=== PATIENT | female | born 1960 | race Caucasian/White ===

== ENCOUNTER 2019-04-10 12:34 | Inpatient (IN) | payer MEDICAID ==
[~2019-04-10] VITALS: Ht 160 cm; Wt 64.5 kg
[2019-04-10 13:07] LABS: BASOPHILS # (AUTO) 0.1 X10'3 (0-0.2); BASOPHILS % (AUTO) 0.5 % (0-1); EOSINOPHILS % (AUTO) 0.2 % (0-6); HEMATOCRIT 29.2 % (35.0-45.0); HEMOGLOBIN 10.3 g/dl (12.0-16.0); LYMPHOCYTES # (AUTO) 1.1 X10'3 (1.1-4.8); LYMPHOCYTES % (AUTO) 9.7 % (21-51); MEAN CORPUSCULAR HEMOGLOBIN 30.4 PG (27.0-31.0); MEAN CORPUSCULAR HGB CONC 35.1 g/dL (33.0-36.5); MEAN CORPUSCULAR VOLUME 86.6 FL (78-98); MEAN PLATELET VOLUME 8.2 FL (7.4-10.4); MONOCYTES # (AUTO) 0.8 X10'3 (0-0.9); MONOCYTES % (AUTO) 6.6 % (2-12); NEUTROPHILS # (AUTO) 9.4 X10'3 (1.8-7.7); PLATELET COUNT 179 X10'3 (140-440); RED BLOOD COUNT 3.37 X10'6 (4.20-5.60); RED CELL DISTRIBUTION WIDTH 14.9 % (11.5-14.5); WHITE BLOOD COUNT 11.4 X10'3 (4.5-11.0)
[2019-04-10] MEDS ORDERED: HYDROmorphone 1 mg/ml syringe IV ONE ×2 (13:10→15:05)
[2019-04-10 13:19] LABS: PARTIAL THROMBOPLASTIN TIME 32 SECONDS (22-32)
[2019-04-10] MEDS ORDERED: nicotine 14mg patch - 24hr TD ONE (13:20)
[2019-04-10 13:27] LABS: CLARITY,URINE SLIGHTLY CLOUDY (Clear); COLOR,URINE STRAW (Yellow); GLUCOSE, URINE NEGATIVE (Neg); KETONES,URINE TRACE mg/dl (Neg); LEUKOCYTE ESTERASE ,URINE SMALL (Neg); NITRITES, URINE POSITIVE (Neg); OCCULT BLOOD,URINE MODERATE (Neg); PROTEIN,URINE NEGATIVE (Neg); UROBILINOGEN,URINE 0.2 E.U/dL (0.2-1.0)
[2019-04-10 13:29] LABS: ALANINE AMINOTRANSFERASE 45 U/L (12-78); ALBUMIN 2.7 G/DL (3.4-5.0); ALBUMIN/GLOBULIN RATIO 0.9 (1.1-1.5); ALKALINE PHOSPHATASE 136 IU/L (46-116); ANION GAP 8 (8-16); ASPARTATE AMINO TRANSFERASE 49 U/L (10-37); BILIRUBIN,TOTAL 0.7 MG/DL (0.1-1.0); BLOOD UREA NITROGEN 4 MG/DL (7-18); CALCIUM 6.9 MG/DL (8.5-10.1); CHLORIDE 103 MMOL/L (99-107); CREATININE 0.57 MG/DL (0.40-0.90); GLUCOSE 96 MG/DL (70-104); POTASSIUM 4.2 MMOL/L (3.5-5.1); SODIUM 132 MMOL/L (135-145); TOTAL CARBON DIOXIDE 20.9 MMOL/L (24-32); TOTAL PROTEIN 5.7 G/DL (6.4-8.2); eGFR > 90 ML/MIN
[2019-04-10 13:29] LABS: UA COLLECTION TYPE FOLEY CATH
[2019-04-10 13:36] LABS: BACTERIA,URINE 4+ /HPF (Neg); RBC,URINE 0-2 /HPF (0-2)
[2019-04-10 13:37] LABS: MUCUS STRANDS NONE SEEN /LPF (Neg); SQUAMOUS EPITHELIAL CELL,UR FEW /LPF (FEW); WBC CLUMPS,URINE FEW /HPF (NEGATIVE)
[2019-04-10] MEDS ORDERED: LEVO75TA7 PO (13:42)
[2019-04-10] MEDS ORDERED: WOOL454C TOP (13:42)
[2019-04-10] MEDS ORDERED: LOSA50TA64 PO (13:42)
[2019-04-10] MEDS ORDERED: CETI10TA18 PO (13:42)
[2019-04-10] MEDS ORDERED: LEVO88TA2 PO (13:42)
[2019-04-10] MEDS ORDERED: HYDROcodone/acetaminophen 5mg/325mg tablet PO PRN (13:50)
[2019-04-10] MEDS ORDERED: morphine 2 MG/ML inj. syringe IV PRN ×2 (13:50)
[2019-04-10] MEDS ORDERED: magnesium hydroxide 30ml (MOM) UD suspension PO PRN (13:50)
[2019-04-10] MEDS ORDERED: HYDROcodone/acetaminophen 10/325mg tab PO PRN (13:50)
[2019-04-10] MEDS ORDERED: mag hydrox/Alum hydrox/simeth 30ml oral suspension PO PRN (13:50)
[2019-04-10] MEDS ORDERED: acetaminophen 325mg tablet PO PRN ×2 (13:50)
[2019-04-10] MEDS: dextrose 5%-1/2 normal saline 1,000 ML IV SCH (15:17)
[2019-04-10 16:53] VITALS: BP 129/76
--- NOTE | 2019-04-10 17:14 | NUR ---
Patient in room ORTHO 4009. I have received report from Mariya SCHNEIDER and had the opportunity to ask questions and assume patient care.
[2019-04-10 18:00] VITALS: BP 105/57
--- NOTE | 2019-04-10 18:22 | NUR ---
I have reviewed and agree with all interventions, assessments performed and documented by Drake SCHNEIDER.
--- NOTE | 2019-04-10 18:28 | NUR ---
Problems reprioritized. Patient report given, questions answered & plan of care reviewed with Meek SCHNEIDER.
--- NOTE | 2019-04-10 19:00 | NUR ---
Patient in room ORTHO 4009. I have received report from Drake SCHNEIDER and had the opportunity to ask questions and assume patient care.
[2019-04-10] MEDS: losartan 50mg tablet PO SCH (19:56)
[2019-04-10] MEDS: HYDROmorphone 1 mg/ml syringe IV PRN ×2 (20:00→23:44)
[2019-04-10 22:00] VITALS: BP 103/58
[2019-04-11] VITALS (21 sets, daily range): BP systolic 76–141; BP diastolic 51–87
[2019-04-11] MEDS: dextrose 5%-1/2 normal saline 1,000 ML IV SCH ×2 (00:35→13:42)
[2019-04-11] MEDS ORDERED: diazepam inj 5 MG/ML inj. IV ONE (01:20)
[2019-04-11] MEDS: HYDROmorphone 1 mg/ml syringe IV PRN ×3 (05:34→19:18)
[2019-04-11] MEDS ORDERED: ALBU18HF2 INH (05:46)
--- NOTE | 2019-04-11 06:10 | NUR ---
Patient in room ORTHO 4009. I have received report from RUSSELL SCHNEIDER and had the opportunity to ask questions and assume patient care.
[2019-04-11 06:24] LABS: ALBUMIN 2.3 G/DL (3.4-5.0); ANION GAP 10 (8-16); BLOOD UREA NITROGEN 2 MG/DL (7-18); BUN/CREATININE RATIO 3.9 (6.6-38.0); CALCIUM 7.2 MG/DL (8.5-10.1); CHLORIDE 101 MMOL/L (99-107); CREATININE 0.51 MG/DL (0.40-0.90); GLUCOSE 141 MG/DL (70-104); POTASSIUM 4.1 MMOL/L (3.5-5.1); SODIUM 130 MMOL/L (135-145); TOTAL CARBON DIOXIDE 18.9 MMOL/L (24-32); eGFR > 90 ML/MIN
[2019-04-11 06:50] LABS: BASOPHILS # (AUTO) 0.1 X10'3 (0-0.2); BASOPHILS % (AUTO) 0.6 % (0-1); EOSINOPHILS # (AUTO) 0.1 X10'3 (0-0.9); EOSINOPHILS % (AUTO) 0.9 % (0-6); HEMATOCRIT 24.7 % (35.0-45.0); HEMOGLOBIN 8.6 g/dl (12.0-16.0); LYMPHOCYTES # (AUTO) 1.3 X10'3 (1.1-4.8); LYMPHOCYTES % (AUTO) 12.4 % (21-51); MEAN CORPUSCULAR HGB CONC 34.7 g/dL (33.0-36.5); MEAN CORPUSCULAR VOLUME 86.4 FL (78-98); MEAN PLATELET VOLUME 8.8 FL (7.4-10.4); MONOCYTES # (AUTO) 0.8 X10'3 (0-0.9); MONOCYTES % (AUTO) 7.1 % (2-12); NEUTROPHILS # (AUTO) 8.6 X10'3 (1.8-7.7); PLATELET COUNT 132 X10'3 (140-440); RED BLOOD COUNT 2.87 X10'6 (4.20-5.60); RED CELL DISTRIBUTION WIDTH 14.8 % (11.5-14.5); WHITE BLOOD COUNT 10.9 X10'3 (4.5-11.0)
[2019-04-11] MEDS: levoTHYROXINE 75mcg tablet PO SCH ×2 (07:00→13:42)
[2019-04-11] MEDS: losartan 50mg tablet PO SCH ×2 (07:28→19:16)
--- NOTE | 2019-04-11 09:00 | NUR ---
DOWN TO THE OR.
[2019-04-11] MEDS ORDERED: MIDAZolam 5mg/5ml vial ONE (09:47)
[2019-04-11] MEDS ORDERED: fentaNYL/PF 50MCG/1 ML 2ML syringe ONE (09:48)
[2019-04-11] MEDS ORDERED: tetracaine 1% (10mg/ml) pres. free inj. ONE (09:51)
[2019-04-11] MEDS ORDERED: tranexamic acid 100mg/ml inj. ONE (10:05)
[2019-04-11] MEDS ORDERED: ringers solution, lacted 1,000 ML IV SCH (10:29)
[2019-04-11] MEDS ORDERED: meperidine/PF 25mg/ml syringe IV PRN ×3 (10:30)
[2019-04-11] MEDS ORDERED: morphine 4 MG/ML inj SYRINge IV PRN ×2 (10:30)
[2019-04-11] MEDS ORDERED: proCHLORperazine 10 MG/2 ml inj IV PRN (10:30)
[2019-04-11] MEDS ORDERED: ondansetron/PF 4mg/2ml inj IV PRN (10:30)
[2019-04-11] MEDS ORDERED: ePHEDrine 50MG/ML INJ. ONE (11:00)
[2019-04-11] MEDS ORDERED: propofol inj 20 ML IV ONE (11:00)
[2019-04-11] MEDS ORDERED: albuterol 2.5 MG/3 ML nebule NEB ONE (11:40)
--- NOTE | 2019-04-11 11:40 | NUR ---
Received from OR via BED, accompanied by Anesthesiologist PERRY and report given by Anesthesiolgist. PT AWAKE AND ALERT, OXYGENATING WELL ON 3 LPM O2 VIA NC, PT HAS ALOT OF CLEAR PHLEGM, C/O NOT BEING ABLE TO BRING UP SECRETIONS. RESP TX GIVEN PER ANESTHESIA ORDERS. PT DENIES NAUSEA, NO PAIN. HAD SAB, NO MOVEMENT OR SENSATION FROM UMBILICUS DOWN. PEDAL PULSES PALP BILAT. R HIP DSG CDI, DEANNA BANDAGE OVER KNEE AND DISTAL FEMUR. CDI. FC PATENT, SCDS ON. VSS.
--- NOTE | 2019-04-11 12:50 | NUR ---
Report called to receiving nurse. Transferred via BED Belongings IN PT ROOM. NO PAIN, SPINAL STILL EFFECTIVE. RLE IMMOBILIZER IN PLACE. DENIES NAUSEA, NO REQUEST FOR FLUIDS. VSS. POST OP XRAY DONE. PT CLEARING SECRETION WITHOUT DIFFICULTY, SA02 100% ON 2LPM VIA NC. TRANSFERRED BACK TO ORTHO FLOOR IN STABLE CONDITION. Special Issues communicated to receiving nurse.
--- NOTE | 2019-04-11 13:00 | NUR ---
ASSUMED CARE, RECEIVED REPORT FROM MACO SCHNEIDER. POST OP VS STARTED. PT REPORTS 0/10 PAIN. WILL CONTINUE TO MONITOR.
[2019-04-11] MEDS: CefTRIAXone/D5W-Rocephin 1gm 50 ML IV SCH (13:42)
--- NOTE | 2019-04-11 14:46 | NUR ---
PAGER ID: [phone] MESSAGE: JANN [id number] RE: MARCELO [id number] PATIENT ASKING FOR NICOTINE PATCH.
[2019-04-11] MEDS: ondansetron/PF 4mg/2ml inj IV PRN (15:22)
[2019-04-11] MEDS: cefazolin/dext.iso 2gm/100ml 100 ML IV SCH (15:56)
--- NOTE | 2019-04-11 17:35 | NUR ---
PAGER ID: [phone] MESSAGE: JANN [id number] RE: MARCELO [id number] PATIENT IS REQUESTING A MUSCLE RELAXER.
[2019-04-11] MEDS ORDERED: traMADol 50MG tablet PO PRN (17:50)
[2019-04-11] MEDS: traMADol 50MG tablet PO PRN ×2 (17:59→21:33)
--- NOTE | 2019-04-11 18:05 | NUR ---
Problems reprioritized. Patient report given, questions answered & plan of care reviewed with RUSSELL SCHNEIDER.
--- NOTE | 2019-04-11 19:00 | NUR ---
Patient in room ORTH[facility] 4009. I have received report from Corey SCHNEIDER and had the opportunity to ask questions and assume patient care.
[2019-04-11] MEDS ORDERED: hydrOXYzine 25 MG tablet PO PRN (20:00)
[2019-04-11] MEDS ORDERED: albuterol 2.5 MG/3 ML nebule NEB PRN (21:05)
[2019-04-11] MEDS: ALBUTEROL IH (22:12)
[2019-04-12] MEDS: HYDROmorphone 1 mg/ml syringe IV PRN ×5 (00:04→16:13)
[2019-04-12] MEDS: cefazolin/dext.iso 2gm/100ml 100 ML IV SCH ×3 (00:04→16:18)
[2019-04-12] MEDS: dextrose 5%-1/2 normal saline 1,000 ML IV SCH ×3 (00:16→21:36)
[2019-04-12 02:00] VITALS: BP 94/48
[2019-04-12 06:00] VITALS: BP 99/50
[2019-04-12] MEDS: traMADol 50MG tablet PO PRN ×5 (06:13→22:46)
--- NOTE | 2019-04-12 06:30 | NUR ---
Patient in room ORTH[facility] 4009. I have received report from WYATT Eden and had the opportunity to ask questions and assume patient care.
[2019-04-12] MEDS: levoTHYROXINE 75mcg tablet PO SCH (07:00)
[2019-04-12 07:10] LABS: BASOPHILS # (AUTO) 0.1 X10'3 (0-0.2); BASOPHILS % (AUTO) 0.5 % (0-1); EOSINOPHILS # (AUTO) 0.1 X10'3 (0-0.9); EOSINOPHILS % (AUTO) 1.1 % (0-6); HEMOGLOBIN 7.2 g/dl (12.0-16.0); LYMPHOCYTES # (AUTO) 1.5 X10'3 (1.1-4.8); LYMPHOCYTES % (AUTO) 14.9 % (21-51); MEAN CORPUSCULAR HEMOGLOBIN 30.2 PG (27.0-31.0); MEAN CORPUSCULAR HGB CONC 35.5 g/dL (33.0-36.5); MEAN CORPUSCULAR VOLUME 85.1 FL (78-98); MEAN PLATELET VOLUME 8.9 FL (7.4-10.4); MONOCYTES # (AUTO) 1.2 X10'3 (0-0.9); NEUTROPHILS # (AUTO) 7.3 X10'3 (1.8-7.7); NEUTROPHILS % (AUTO) 71.5 % (42-75); PLATELET COUNT 123 X10'3 (140-440); RED BLOOD COUNT 2.39 X10'6 (4.20-5.60); RED CELL DISTRIBUTION WIDTH 14.6 % (11.5-14.5); WHITE BLOOD COUNT 10.2 X10'3 (4.5-11.0)
[2019-04-12 07:16] LABS: ANION GAP 6 (8-16); CALCIUM 7.3 MG/DL (8.5-10.1); CHLORIDE 96 MMOL/L (99-107); GLUCOSE 125 MG/DL (70-104); POTASSIUM 3.4 MMOL/L (3.5-5.1); SODIUM 126 MMOL/L (135-145); TOTAL CARBON DIOXIDE 24.4 MMOL/L (24-32)
[2019-04-12 07:24] LABS: HEMATOCRIT 20.3 % (35.0-45.0)
[2019-04-12 07:25] LABS: BLOOD UREA NITROGEN 1 MG/DL (7-18); BUN/CREATININE RATIO 1.9 (6.6-38.0); CREATININE 0.54 MG/DL (0.40-0.90); eGFR > 90 ML/MIN
--- NOTE | 2019-04-12 07:26 | NUR ---
CALLED DR MILAN WITH CRITICAL HCT OF 20.3 AND HGB OF 7.2 NO NEW ORDERS GIVEN. WILL CONTINUE TO MONITOR.
[2019-04-12] MEDS: enoxaparin 40mg/0.4ml syringe SUBCUT SCH (07:50)
[2019-04-12] MEDS: CefTRIAXone/D5W-Rocephin 1gm 50 ML IV SCH (07:54)
[2019-04-12] MEDS: losartan 50mg tablet PO SCH ×2 (07:56→20:33)
[2019-04-12] MEDS: ALBUTEROL IH ×3 (08:15→20:52)
[2019-04-12 10:00] VITALS: BP 83/51
[2019-04-12] MEDS: ondansetron/PF 4mg/2ml inj IV PRN (11:05)
[2019-04-12 14:00] VITALS: BP 101/46
[2019-04-12] MEDS ORDERED: potassium Cl 20 mEq SR tablet PO PRN (14:15)
[2019-04-12] MEDS ORDERED: potassium CL 10mEq/100ml bag 100 ML IV PRN (14:15)
[2019-04-12] MEDS: levoTHYROXINE 88mcg tablet PO SCH (14:24)
[2019-04-12] MEDS: potassium Cl 20 mEq SR tablet PO PRN ×3 (14:25→22:46)
[2019-04-12 18:00] VITALS: BP 102/49
--- NOTE | 2019-04-12 18:10 | NUR ---
Received report from Gabriela SCHNEIDER, assumed care of patient.
--- NOTE | 2019-04-12 18:30 | NUR ---
Problems reprioritized. Patient report given, questions answered & plan of care reviewed with WYATT Hamm.
[2019-04-12] MEDS: lactobacillus rhamnosus 10,000 MMU CELLS/CAPSULE PO SCH (20:33)
[2019-04-12] MEDS: HYDROmorphone inj. 0.5 MG/0.5 ML DISP.SYRIN IV PRN (20:33)
[2019-04-12 21:59] VITALS: BP 106/56
[2019-04-13] VITALS (13 sets, daily range): BP systolic 93–127; BP diastolic 49–68
[2019-04-13] MEDS: HYDROmorphone inj. 0.5 MG/0.5 ML DISP.SYRIN IV PRN ×2 (01:05→06:35)
[2019-04-13] MEDS: traMADol 50MG tablet PO PRN ×3 (03:41→19:05)
--- NOTE | 2019-04-13 06:13 | NUR ---
Report given to Gabriela SCHNEIDER.
[2019-04-13 06:15] LABS: BASOPHILS # (AUTO) 0.1 X10'3 (0-0.2); BASOPHILS % (AUTO) 0.5 % (0-1); EOSINOPHILS # (AUTO) 0.2 X10'3 (0-0.9); EOSINOPHILS % (AUTO) 1.9 % (0-6); LYMPHOCYTES # (AUTO) 2.1 X10'3 (1.1-4.8); LYMPHOCYTES % (AUTO) 17.3 % (21-51); MEAN CORPUSCULAR HEMOGLOBIN 29.8 PG (27.0-31.0); MEAN CORPUSCULAR HGB CONC 34.5 g/dL (33.0-36.5); MEAN CORPUSCULAR VOLUME 86.3 FL (78-98); MEAN PLATELET VOLUME 8.8 FL (7.4-10.4); MONOCYTES # (AUTO) 1.8 X10'3 (0-0.9); MONOCYTES % (AUTO) 14.9 % (2-12); NEUTROPHILS % (AUTO) 65.4 % (42-75); PLATELET COUNT 138 X10'3 (140-440); RED CELL DISTRIBUTION WIDTH 14.8 % (11.5-14.5); WHITE BLOOD COUNT 12.3 X10'3 (4.5-11.0)
[2019-04-13 06:30] LABS: ALBUMIN 1.9 G/DL (3.4-5.0); ANION GAP 5 (8-16); BLOOD UREA NITROGEN 1 MG/DL (7-18); BUN/CREATININE RATIO 1.7 (6.6-38.0); CALCIUM 7.4 MG/DL (8.5-10.1); CHLORIDE 96 MMOL/L (99-107); CREATININE 0.58 MG/DL (0.40-0.90); GLUCOSE 101 MG/DL (70-104); MAGNESIUM 1.5 MG/DL (1.5-2.4); POTASSIUM 5.1 MMOL/L (3.5-5.1); SODIUM 126 MMOL/L (135-145); TOTAL CARBON DIOXIDE 25.5 MMOL/L (24-32); eGFR > 90 ML/MIN
[2019-04-13 06:32] LABS: HEMATOCRIT 19.9 % (35.0-45.0); HEMOGLOBIN 6.8 g/dl (12.0-16.0)
[2019-04-13] MEDS ORDERED: diphenhydrAMINE 25mg capsule PO ONE (06:45)
[2019-04-13] MEDS: levoTHYROXINE 75mcg tablet PO SCH (07:00)
[2019-04-13] MEDS: losartan 50mg tablet PO SCH ×2 (08:00→19:05)
[2019-04-13] MEDS: lactobacillus rhamnosus 10,000 MMU CELLS/CAPSULE PO SCH ×2 (08:12→19:05)
[2019-04-13] MEDS: dextrose 5%-1/2 normal saline 1,000 ML IV SCH (08:12)
[2019-04-13] MEDS: CefTRIAXone/D5W-Rocephin 1gm 50 ML IV SCH (08:12)
[2019-04-13] MEDS: enoxaparin 40mg/0.4ml syringe SUBCUT SCH (08:13)
--- NOTE | 2019-04-13 18:10 | NUR ---
Received report from Gabriela SCHNEIDER, assumed care of patient with Noris SCHNEIDER.
--- NOTE | 2019-04-13 19:00 | NUR ---
Offered patient milk of magnesia since she hasn't had a bowel movement since 04/10, patient requested milk of mag to be administered in the AM
[2019-04-14] MEDS: traMADol 50MG tablet PO PRN ×4 (02:21→23:12)
--- NOTE | 2019-04-14 05:47 | NUR ---
In agreement with and have reviewed all charting and med pass completed by Elsa SCHNEIDER for the shift time frame.
[2019-04-14 06:00] VITALS: BP 134/80
--- NOTE | 2019-04-14 06:05 | NUR ---
Gave report to Gabriela SCHNEIDER.
[2019-04-14 06:22] LABS: BASOPHILS # (AUTO) 0.1 X10'3 (0-0.2); BASOPHILS % (AUTO) 0.7 % (0-1); EOSINOPHILS # (AUTO) 0.1 X10'3 (0-0.9); HEMATOCRIT 27.2 % (35.0-45.0); HEMOGLOBIN 9.7 g/dl (12.0-16.0); LYMPHOCYTES # (AUTO) 1.5 X10'3 (1.1-4.8); LYMPHOCYTES % (AUTO) 13.7 % (21-51); MEAN CORPUSCULAR HEMOGLOBIN 30.6 PG (27.0-31.0); MEAN CORPUSCULAR HGB CONC 35.8 g/dL (33.0-36.5); MEAN CORPUSCULAR VOLUME 85.4 FL (78-98); MEAN PLATELET VOLUME 8.7 FL (7.4-10.4); MONOCYTES # (AUTO) 1.7 X10'3 (0-0.9); MONOCYTES % (AUTO) 15.4 % (2-12); NEUTROPHILS # (AUTO) 7.6 X10'3 (1.8-7.7); NEUTROPHILS % (AUTO) 69.2 % (42-75); PLATELET COUNT 165 X10'3 (140-440); RED BLOOD COUNT 3.19 X10'6 (4.20-5.60); RED CELL DISTRIBUTION WIDTH 14.9 % (11.5-14.5)
[2019-04-14 06:32] LABS: ANION GAP 5 (8-16); BLOOD UREA NITROGEN 1 MG/DL (7-18); BUN/CREATININE RATIO 1.6 (6.6-38.0); CALCIUM 7.9 MG/DL (8.5-10.1); CHLORIDE 94 MMOL/L (99-107); CREATININE 0.62 MG/DL (0.40-0.90); GLUCOSE 90 MG/DL (70-104); MAGNESIUM 1.7 MG/DL (1.5-2.4); POTASSIUM 4.2 MMOL/L (3.5-5.1); SODIUM 128 MMOL/L (135-145); TOTAL CARBON DIOXIDE 29.1 MMOL/L (24-32); eGFR > 90 ML/MIN
[2019-04-14] MEDS: levoTHYROXINE 88mcg tablet PO SCH (07:08)
[2019-04-14] MEDS: losartan 50mg tablet PO SCH ×2 (08:00→20:03)
[2019-04-14] MEDS: CefTRIAXone/D5W-Rocephin 1gm 50 ML IV SCH (08:00)
[2019-04-14] MEDS: lactobacillus rhamnosus 10,000 MMU CELLS/CAPSULE PO SCH ×2 (08:00→20:03)
[2019-04-14] MEDS: enoxaparin 40mg/0.4ml syringe SUBCUT SCH (08:00)
[2019-04-14 10:00] VITALS: BP 113/68
[2019-04-14 17:51] LABS: TOTAL CELLS COUNTED 100
[2019-04-14 17:53] LABS: PLATELET ESTIMATE NORMAL
[2019-04-14] MEDS ORDERED: sennosides/docusate sodium tablet PO SCH (21:00)
[2019-04-14 22:00] VITALS: BP 118/61
[2019-04-15] MEDS: traMADol 50MG tablet PO PRN ×4 (05:03→16:46)
[2019-04-15 06:36] LABS: ALBUMIN 1.9 G/DL (3.4-5.0); ANION GAP 7 (8-16); BLOOD UREA NITROGEN 3 MG/DL (7-18); BUN/CREATININE RATIO 5.3 (6.6-38.0); CALCIUM 7.9 MG/DL (8.5-10.1); CHLORIDE 92 MMOL/L (99-107); CREATININE 0.57 MG/DL (0.40-0.90); GLUCOSE 85 MG/DL (70-104); MAGNESIUM 1.7 MG/DL (1.5-2.4); POTASSIUM 3.8 MMOL/L (3.5-5.1); SODIUM 127 MMOL/L (135-145); TOTAL CARBON DIOXIDE 27.7 MMOL/L (24-32); eGFR > 90 ML/MIN
[2019-04-15 06:37] LABS: BASOPHILS # (AUTO) 0.1 X10'3 (0-0.2); BASOPHILS % (AUTO) 0.5 % (0-1); EOSINOPHILS # (AUTO) 0.3 X10'3 (0-0.9); EOSINOPHILS % (AUTO) 2.5 % (0-6); HEMATOCRIT 26.4 % (35.0-45.0); HEMOGLOBIN 9.5 g/dl (12.0-16.0); LYMPHOCYTES # (AUTO) 1.3 X10'3 (1.1-4.8); LYMPHOCYTES % (AUTO) 12.2 % (21-51); MEAN CORPUSCULAR HEMOGLOBIN 30.6 PG (27.0-31.0); MEAN CORPUSCULAR HGB CONC 36.1 g/dL (33.0-36.5); MEAN CORPUSCULAR VOLUME 84.7 FL (78-98); MEAN PLATELET VOLUME 8.5 FL (7.4-10.4); MONOCYTES # (AUTO) 2.2 X10'3 (0-0.9); MONOCYTES % (AUTO) 21.1 % (2-12); NEUTROPHILS # (AUTO) 6.5 X10'3 (1.8-7.7); NEUTROPHILS % (AUTO) 63.7 % (42-75); PLATELET COUNT 197 X10'3 (140-440); RED BLOOD COUNT 3.11 X10'6 (4.20-5.60); RED CELL DISTRIBUTION WIDTH 14.8 % (11.5-14.5); WHITE BLOOD COUNT 10.3 X10'3 (4.5-11.0)
--- NOTE | 2019-04-15 06:37 | NUR ---
REPORT TO WYATT HARPER AND WYATT FORTE.
[2019-04-15 06:46] VITALS: BP 113/70
--- NOTE | 2019-04-15 06:47 | NUR ---
Patient in room [facility]TH[facility] 4009. I have received report from Delia SCHNEIDER and had the opportunity to ask questions and assume patient care.
[2019-04-15] MEDS: losartan 50mg tablet PO SCH (07:49)
[2019-04-15] MEDS: levoTHYROXINE 75mcg tablet PO SCH (07:49)
[2019-04-15] MEDS: CefTRIAXone/D5W-Rocephin 1gm 50 ML IV SCH (07:50)
[2019-04-15] MEDS: lactobacillus rhamnosus 10,000 MMU CELLS/CAPSULE PO SCH (07:50)
[2019-04-15] MEDS: enoxaparin 40mg/0.4ml syringe SUBCUT SCH (07:51)
[2019-04-15 10:37] VITALS: BP 106/57
--- NOTE | 2019-04-15 11:21 | NUR ---
Joint replacement consult: Pt seen by RD for written/verbal high protein ed. RD reviewed high protein needs for wound healing, immune strength, high protein foods, and protein supplementation options. RD contact information provided in case of further questions. Pt declines additional proteins but being d/c to rehab and reports will ask for ONS there. PO 50-75% avg meals meeting needs; no teeth on mechanical soft diet. Pt Na 132 -8L fluid balance since admit; to receive double salt packets w/ meals dietary notified. LBM 04/14. Will continue to monitor. Rec: 1. continue mechanical soft diet; double salt packet TIDWM 2. wt per rx Addendum: 04/15/19 at [address] Amended: Links added.
[2019-04-15 12:14] LABS: HYPOCHROMASIA 1+; NUCLEATED RED BLOOD CELLS 1 /100WBC (0-0); PLATELET ESTIMATE NORMAL; SPHEROCYTES FEW; TOTAL CELLS COUNTED 100
[2019-04-15 12:15] LABS: POLYCHROMASIA FEW; SCHISTOCYTES FEW; TARGET CELLS 1+
--- NOTE | 2019-04-15 16:46 | NUR ---
was not able to scan pain pill
--- NOTE | 2019-04-15 17:00 | NUR ---
I AGREE WITH MY PRECEPTEE LEROY SCHNEIDER CHARTING.
--- NOTE | 2019-04-15 17:04 | NUR ---
Pt transferred to [facility] with home medications and personal items with Pt.
== END 2019-04-15 17:00 | DRG 309 ==
LOC: ER 12:35 → ORTHO 4S 14:55 → CMPBEDREQ 04-13 19:44
PROVIDERS: ADMIT Internal Medicine; ATTEND Hospitalist
PROC: 0QH634Z Insertion of Internal Fixation Device into Right Upper Femur, Percutaneous Approach (ICD-10-PCS; 2019-04-11)
PROC: 0QSB04Z Reposition Right Lower Femur with Internal Fixation Device, Open Approach (ICD-10-PCS; principal; 2019-04-11 09:48)
PROC: 30233N1 Transfusion of Nonautologous Red Blood Cells into Peripheral Vein, Percutaneous Approach (ICD-10-PCS; 2019-04-13)
DX: M97.11XA Periprosthetic fracture around internal prosthetic right knee joint, initial encounter (principal); S72.011A Unspecified intracapsular fracture of right femur, initial encounter for closed fracture; D62 Acute posthemorrhagic anemia; E87.1 Hypo-osmolality and hyponatremia; E89.0 Postprocedural hypothyroidism; F17.210 Nicotine dependence, cigarettes, uncomplicated; W01.0XXA Fall on same level from slipping, tripping and stumbling without subsequent striking against object, initial encounter; N39.0 Urinary tract infection, site not specified; Y93.01 Activity, walking, marching and hiking; I10 Essential (primary) hypertension; Z60.2 Problems related to living alone; J44.9 Chronic obstructive pulmonary disease, unspecified; F12.90 Cannabis use, unspecified, uncomplicated; Z83.3 Family history of diabetes mellitus; Z85.42 Personal history of malignant neoplasm of other parts of uterus; Z90.710 Acquired absence of both cervix and uterus; Y99.8 Other external cause status; Z88.5 Allergy status to narcotic agent; Z88.8 Allergy status to other drugs, medicaments and biological substances; Z98.891 History of uterine scar from previous surgery; Y92.098 Other place in other non-institutional residence as the place of occurrence of the external cause; Z79.899 Other long term (current) drug therapy; K59.03 Drug induced constipation; T40.2X5A Adverse effect of other opioids, initial encounter; Y92.238 Other place in hospital as the place of occurrence of the external cause
CPT/HCPCS: 36415; 71045; 73502; 73552; 73610; 73700; 76000; 80048; 80053; 81001; 82948; 83735; 84443; 85025; 85610; 85730; 86885; 86900; 86901; 86920; 87077; 87081; 87088; 87186; 93005; 94640; 94760; 96374; 96375; 97110; 97116; 97162; 97530; 99285; A6222; A6446; A6449; A7000; C1713; G0378; J0696; J1170; J1650; J2250; J2270; J2405; J2704; J3010; J3360; J7120; P9016; Q0163; Z7610